=== PATIENT | female | born 1965 | race Caucasian/White ===

== ENCOUNTER 2017-06-11 01:19 | Emergency (ER) | payer MEDICAID, OTHER | END 2017-06-11 06:30 | disposition home or self-care (01) | LOC: E/R 01:19 | DX: R00.2 Palpitations (principal) | CPT/HCPCS: 93005; 99283-25 ==

== ENCOUNTER 2018-08-04 06:37 | Emergency (ER) | payer MEDICAID ==
[2018-08-04] MEDS: OXYMETAZOLINE 0.05% 15 ML NAS SPRAY NASAL (07:12)
[2018-08-04 07:34] LABS: ADD MAN DIFF? NO
[2018-08-04] MEDS: NICARDipine HCL 30 MG CAPSULE PO (07:38)
[2018-08-04 07:47] LABS: BASOPHIL # 0.1 10^3/ul (0.0-0.1); BASOPHILS % 0.9 % (0.0-2.0); EOSINOPHILS # 0.1 10^3/ul (0.0-0.5); EOSINOPHILS % 2.2 % (0.0-7.0); HEMATOCRIT 39.3 % (37.0-47.0); HEMOGLOBIN 13.2 g/dl (12.0-16.0); LYMPHOCYTES # 2.2 10^3/ul (0.8-2.9); LYMPHOCYTES % 36.6 % (15.0-51.0); MEAN CORPUSCULAR HGB CONC 33.6 g/dl (32.0-37.0); MEAN CORPUSCULAR VOLUME 92.3 fl (82.0-101.0); MEAN PLATELET VOLUME 9.3 fl (7.4-10.4); MONOCYTE # 0.4 10^3/ul (0.3-0.9); MONOCYTES % 7.5 % (0.0-11.0); NEUTROPHIL # 3.1 10^3/ul (1.6-7.5); NEUTROPHILS % 52.5 % (39.0-77.0); PLATELET COUNT 232 10^3/UL (140-415); RED BLOOD COUNT 4.26 10^6/ul (4.20-5.40); RED CELL DISTRIBUTION WIDTH 13.1 % (11.5-14.5)
[2018-08-04 07:47] LABS: WHITE BLOOD COUNT 5.9 10^3/ul (4.8-10.8)
[2018-08-04 07:55] LABS: INR 0.95; PROTIME 12.8 Sec (11.9-14.9)
[2018-08-04 07:56] LABS: PARTIAL THROMBOPLASTIN TIME 27.6 Sec (23.0-35.0)
[2018-08-04 08:07] LABS: ALANINE AMINOTRANSFERASE 73 IU/L (13-69); ALBUMIN 4.3 g/dl (3.3-4.9); ALBUMIN/GLOBULIN RATIO 1.34; ALKALINE PHOSPHATASE 70 IU/L (42-121); ANION GAP 9 (5-13); ASPARTATE AMINO TRANSFERASE 76 IU/L (15-46); BILIRUBIN,INDIRECT 0.3 mg/dl (0-1.1); BILIRUBIN,TOTAL 0.3 mg/dl (0.2-1.3); BLOOD UREA NITROGEN 11 mg/dl (7-20); CALCIUM 9.4 mg/dl (8.4-10.2); CARBON DIOXIDE 25 mmol/L (21-31); CHLORIDE 107 mmol/L (97-110); CREATININE 0.58 mg/dl (0.44-1.00); Estimated GFR > 60 mL/min (>60); GLUCOSE 107 mg/dl (70-220); POTASSIUM 3.7 mmol/L (3.5-5.1); SODIUM 141 mmol/L (135-144); TOTAL PROTEIN 7.5 g/dl (6.1-8.1)
[2018-08-04 08:18] LABS: TROPONIN-I < 0.012 ng/ml (0.000-0.120)
== END 2018-08-04 10:31 | disposition home or self-care (01) ==
LOC: E/R 06:37
DX: R04.0 Epistaxis (principal); I16.0 Hypertensive urgency; R40.2142 Coma scale, eyes open, spontaneous, at arrival to emergency department; R40.2252 Coma scale, best verbal response, oriented, at arrival to emergency department; R40.2362 Coma scale, best motor response, obeys commands, at arrival to emergency department
CPT/HCPCS: 80053; 84484; 85025; 85610; 85730; 93005; 99284-25

== ENCOUNTER 2018-10-25 01:13 | Emergency (ER) | payer MEDICAID ==
[2018-10-25] MEDS: HYDROCODONE/APAP (5/325) TAB PO (05:36)
[2018-10-25] MEDS: KETOROLAC 30 MG INJ IM (05:36)
== END 2018-10-25 05:53 | disposition home or self-care (01) ==
LOC: FTE 01:13
DX: S20.219A Contusion of unspecified front wall of thorax, initial encounter (principal); S10.93XA Contusion of unspecified part of neck, initial encounter; M62.838 Other muscle spasm; M62.830 Muscle spasm of back; S20.229A Contusion of unspecified back wall of thorax, initial encounter; V43.52XA Car driver injured in collision with other type car in traffic accident, initial encounter
CPT/HCPCS: 71046; 72125; 81025; 96372; 99285-25